=== PATIENT | female | born 1980 | race Two or more races ===

== ENCOUNTER 2023-06-23 21:17 | Emergency (ER) | payer OTHER ==
[~2023-06-23] VITALS: Ht 157.5 cm; Wt 57.6 kg
[2023-06-23] MEDS ORDERED: ZYRTEC10 M3 (22:14)
[2023-06-23] MEDS ORDERED: OMEPRAZOLE20 MG (22:14)
[2023-06-23] MEDS ORDERED: SINGULAIR10 MG (22:14)
[2023-06-23] MEDS ORDERED: SYMBICORT 16010.2 GM (22:15)
[2023-06-23] MEDS ORDERED: CELLCEPT500 MG (22:15)
[2023-06-23] MEDS ORDERED: NIFEDIPINE10 MG (22:16)
[2023-06-23 23:14] LABS: HEMATOCRIT 35.8 % (36.0-45.00); HEMOGLOBIN 12.1 g/dL (12.0-15.00); MEAN CELL VOLUME 95.3 fL (80.00-100.00); MEAN CORPUSCULAR HEMOGLOBIN 32.3 pg (27.00-32.0); MEAN CORPUSCULAR HGB CONC 33.9 g/dl (32.0-36.0); PLATELET COUNT 384 K/uL (150-450); RED BLOOD COUNT 3.76 M/uL (4.00-6.00); RED CELL DISTRIBUTION WIDTH 15.5 % (11.5-14.5)
[2023-06-23 23:33] LABS: ALBUMIN 3.3 gm/dL (3.4-5.0); BILIRUBIN TOTAL 0.36 mg/dL (0.3-1.2); CALCIUM 8.6 mg/dL (8.5-10.1); CREATININE SERUM 0.54 mg/dL (0.55-1.02); GFR 122.64; GLOBULINA 4.4 G/DL (2.4-3.5); POTASSIUM 3.68 mEq/L (3.5-5.1); TOTAL PROTEIN 7.7 gm/dL (6.4-8.2)
[2023-06-24] MEDS ORDERED: LEVSIN/SL0.125 MG SL (04:06)
[2023-06-24] MEDS ORDERED: METRONIDAZOLE500 MG PO (04:06)
[2023-06-24] MEDS ORDERED: CIPRO500 MG PO (04:06)
[2023-06-24] MEDS ORDERED: ONDANSETRON ODT4 MG PO (04:06)
== END 2023-06-24 04:10 ==
LOC: ER 21:17
PROVIDERS: General Practice
DX: R10.32 Left lower quadrant pain (principal); R10.9 Unspecified abdominal pain